=== PATIENT | male | born 1935 | race Caucasian/White ===

== ENCOUNTER 2021-01-15 10:49 | Observation (INO) | payer MEDICARE ==
[~2021-01-15] VITALS: Ht 188 cm; Wt 65.3 kg
[2021-01-15] MEDS ORDERED: LEVO25TA2 PO (11:13)
--- NOTE | 2021-01-15 11:13 | NUR ---
MD LUCIA AT BEDSIDE
[2021-01-15 11:20] LABS: BASOPHILS % (AUTO) 1 % (0-1); EOSINOPHILS % (AUTO) 2 % (1-7); LYMPHOCYTES % (AUTO) 24 % (22-44); MEAN CORPUSCULAR HEMOGLOBIN 35.1 pg (27.5-34.5); MEAN CORPUSCULAR HGB CONC 34.5 g/dL (33.2-36.2); MEAN PLATELET VOLUME 7.7 fL (7.4-10.4); MONOCYTES % (AUTO) 10 % (2-9); NEUTROPHILS % (AUTO) 65 % (42-75); PLATELET COUNT 170 x10^3/uL (130-400); RED CELL DISTRIBUTION WIDTH 13.4 % (9.4-14.8)
[2021-01-15 11:32] LABS: ALANINE AMINOTRANSFERASE 14 U/L (12-78); ALBUMIN 3.6 g/dL (3.4-5.0); ANION GAP 5 mmol/L (5-15); CALCIUM 9.2 mg/dL (8.5-10.1); CHLORIDE 106 mmol/L (98-107); CREATININE 1.14 mg/dL (0.7-1.3)
[2021-01-15 11:36] LABS: ALKALINE PHOSPHATASE 104 U/L (45-117); BILIRUBIN,TOTAL 0.5 mg/dL (0.2-1.0); TOTAL PROTEIN 7.2 g/dL (6.4-8.2); TROPONIN I < 0.015 ng/mL (0.000-0.045)
[2021-01-15 12:32] LABS: MICROSCOPIC NOT IND
--- NOTE | 2021-01-15 12:37 | NUR ---
PT RESTING COMFORTABLY FAMILY AT BEDSIDE. AWAITING CT SCAN. DELAY DUE TO CODE NEURO
[2021-01-15] MEDS ORDERED: OMNIPAQUE 350 MG/ML, 100ML BOTTLE ONE (14:28)
[2021-01-15] MEDS ORDERED: LABETALOL 5MG/ML, 20ML IV PRN ×2 (15:00)
[2021-01-15] MEDS ORDERED: ONDANSETRON 4 MG TABLET PO PRN ×2 (15:00)
[2021-01-15 16:04] VITALS: BP 127/72
[2021-01-15 18:03] VITALS: BP 115/63
[2021-01-15 19:33] VITALS: BP 110/60
[2021-01-15 20:51] VITALS: BP 100/56
[2021-01-15 22:05] VITALS: BP 91/53
[2021-01-15 22:52] VITALS: BP 92/59
[2021-01-16 01:02] VITALS: BP 100/61
[2021-01-16 02:59] VITALS: BP 92/58
[2021-01-16 05:31] VITALS: BP 101/57
[2021-01-16 05:42] LABS: CHOL/HDL RATIO 2.3; LDL/HDL RATIO 1.1 (0.5-3.0)
[2021-01-16 07:23] VITALS: BP 107/61
[2021-01-16 12:50] VITALS: BP 112/63
[2021-01-16] MEDS ORDERED: ASPI81TA45 PO (14:42)
[2021-01-16] MEDS ORDERED: ATOR40TA78 PO (14:42)
== END 2021-01-16 17:39 | disposition home or self-care (01) ==
LOC: ED 11:20 → EDIP 13:40 → INTOOBSV 13:40 → 4WST 15:35
PROVIDERS: ADMIT Family Medicine; ATTEND Family Medicine
DX: G45.9 Transient cerebral ischemic attack, unspecified (principal); I07.1 Rheumatic tricuspid insufficiency; I44.0 Atrioventricular block, first degree; G45.0 Vertebro-basilar artery syndrome; H91.90 Unspecified hearing loss, unspecified ear; E03.9 Hypothyroidism, unspecified; Z86.79 Personal history of other diseases of the circulatory system; Z79.899 Other long term (current) drug therapy; Z79.82 Long term (current) use of aspirin
CPT/HCPCS: 36415; 70450; 70496; 70498; 70551; 71045; 80053; 80061; 81003; 84443; 84484; 85025; 92523; 93005; 93306; 97161; 97165; 99285; G0378; Q9967